=== PATIENT | male | born 1975 | race African-American/Black ===

== ENCOUNTER 2019-11-11 21:03 | Emergency (ER) | payer BC ==
[~2019-11-11] VITALS: Ht 167.6 cm; Wt 103.0 kg
[~2019-11-11 21:03] MED LIST: FLEXERIL PO; IBUPROFEN 800800 MG PO; NORCO 5-325 TA1 EACH PO
[2019-11-11 22:03] LABS: INFLUENZA A ANTIGEN Negative (Negative)
[2019-11-11] MEDS ORDERED: TAMIFLU75 MG PO (22:24)
[2019-11-11] MEDS ORDERED: ONDANSETRON HCL4 M2 PO (22:24)
[2019-11-11 22:52] VITALS: BP 142/92
== END 2019-11-11 22:53 | disposition home or self-care (01) ==
LOC: M.ERS 21:03
PROVIDERS: Nurse Practitioner Family
DX: J10.1 Influenza due to other identified influenza virus with other respiratory manifestations (principal)

== ENCOUNTER 2019-12-09 10:14 | Emergency (ER) | payer BC ==
[~2019-12-09] VITALS: Ht 157.5 cm; Wt 99.8 kg
[~2019-12-09 10:14] MED LIST changes: +ONDANSETRON HCL4 M2 PO; +TAMIFLU75 MG PO
[2019-12-09 10:41] LABS: INFLUENZA A ANTIGEN Negative (Negative)
[2019-12-09] MEDS ORDERED: ONDANSETRON HCL4 M2 PO (10:50)
[2019-12-09] MEDS ORDERED: FLONASE 0.05%50 MCG NARES (10:50)
[2019-12-09] MEDS ORDERED: AMOXICILLIN 50500 MG PO (10:51)
[2019-12-09 10:57] VITALS: BP 126/73
== END 2019-12-09 10:58 | disposition home or self-care (01) ==
LOC: M.ERS 10:14
PROVIDERS: Nurse Practitioner Family
DX: J10.1 Influenza due to other identified influenza virus with other respiratory manifestations (principal); J02.0 Streptococcal pharyngitis

== ENCOUNTER 2020-08-12 08:17 | Emergency (ER) | payer BC ==
[~2020-08-12] VITALS: Ht 167.6 cm; Wt 95.3 kg
[~2020-08-12 08:17] MED LIST changes: +AMOXICILLIN 50500 MG PO; +FLONASE 0.05%50 MCG NARES
[2020-08-12 09:05] VITALS: BP 141/82
== END 2020-08-12 09:05 | disposition home or self-care (01) ==
LOC: M.ERS 08:17
DX: J06.9 Acute upper respiratory infection, unspecified (principal); Z20.828 Contact with and (suspected) exposure to other viral communicable diseases